=== PATIENT | female | born 1970 | race Caucasian/White ===

== ENCOUNTER 2022-04-01 15:47 | Outpatient (REF) | payer OTHER, SELFPAY ==
[2022-04-01 21:37] LABS: Hemoglobin A1C 5.7 % (<5.7)
[2022-04-01 21:50] LABS: ALT 41 U/L (14-59); AST 31 U/L (15-37); Albumin 4.4 g/dL (3.4-5.0); Alkaline Phosphatase 84 U/L (46-116); Anion Gap 9.2 mmol/L (3-11); BUN 10 mg/dL (7-18); Bilirubin, Total 0.3 mg/dL (0.2-1.0); CO2 26.8 mmol/L (21.0-32.0); CREATININE 0.8 mg/dL (0.55-1.02); Calcium 9.2 mg/dL (8.5-10.1); Calculated LDL 170 mg/dL (<100); Chloride 102 mmol/L (98-107); Cholesterol 262 mg/dL (<200); Estimated GFR 88.05 (mL/min/1.73m2); Glucose 111 mg/dL (74-106); HDL Cholesterol 61 mg/dL (40-60); Potassium 3.5 mmol/L (3.5-5.1); Sodium 138 mmol/L (136-145); TSH (W/Ref FT4) 1.94 uIU/mL (0.36-3.74); Total Protein 7.9 g/dL (6.4-8.2); Triglyceride 155 mg/dL (<150)
[2022-04-01 22:35] LABS: Vitamin D 25 Total 24.1 ng/mL (30-100)
== END 2022-04-01 15:48 | disposition home or self-care (01) ==
LOC: NCHCN 15:47
PROVIDERS: PCP Internal Medicine; Visit Provider Family Medicine
DX: Z00.00 Encounter for general adult medical examination without abnormal findings (principal); E66.3 Overweight; E55.9 Vitamin D deficiency, unspecified; R73.09 Other abnormal glucose; I10 Essential (primary) hypertension; E78.2 Mixed hyperlipidemia
CPT/HCPCS: 80053; 80061; 82306; 86141; 83036; 84443

== ENCOUNTER 2022-11-02 12:32 | Outpatient (REF) | payer OTHER, SELFPAY ==
[2022-11-02 14:53] LABS: Hemoglobin A1C 5.6 % (<5.7)
[2022-11-02 22:06] LABS: CRP, High Sensitivity 1.19 mg/L (See Note)
== END 2022-11-02 12:33 | disposition home or self-care (01) ==
LOC: NCHCN 12:32
PROVIDERS: PCP Internal Medicine; Visit Provider Family Medicine
DX: R42 Dizziness and giddiness (principal); R73.09 Other abnormal glucose; E66.3 Overweight
CPT/HCPCS: 86141; 83036

== ENCOUNTER 2022-12-28 15:04 | Outpatient (REF) | payer OTHER, SELFPAY ==
[2022-12-28 16:14] LABS: Mono Screening Negative (Negative)
== END 2022-12-28 15:05 | disposition home or self-care (01) ==
LOC: NCHCN 15:04
PROVIDERS: PCP Internal Medicine; Visit Provider Family Medicine
DX: J02.9 Acute pharyngitis, unspecified (principal)
CPT/HCPCS: 86308

== ENCOUNTER 2024-06-19 16:44 | Outpatient (REF) | payer OTHER, SELFPAY ==
[2024-06-19 22:15] LABS: ALT 68 U/L (14-59); AST 35 U/L (15-37); Albumin 4.4 g/dL (3.4-5.0); Alkaline Phosphatase 130 U/L (46-116); Anion Gap 10.5 mmol/L (3-11); BUN 9 mg/dL (7-18); Bilirubin, Total 0.3 mg/dL (0.2-1.0); CO2 27.5 mmol/L (21.0-32.0); CREATININE 0.8 mg/dL (0.55-1.02); Calcium 9.5 mg/dL (8.5-10.1); Chloride 103 mmol/L (98-107); Estimated GFR 86.96 (mL/min/1.73m2); Glucose 109 mg/dL (74-106); Sodium 141 mmol/L (136-145); Total Protein 8.2 g/dL (6.4-8.2)
[2024-06-20 17:31] LABS: CRP, High Sensitivity 3.63 mg/L (See Note)
== END 2024-06-19 16:45 | disposition home or self-care (01) ==
LOC: NCHCN 16:44
PROVIDERS: PCP Internal Medicine; Visit Provider Family Medicine
DX: E78.5 Hyperlipidemia, unspecified (principal); R74.01 Elevation of levels of liver transaminase levels
CPT/HCPCS: 80053; 86141